=== PATIENT | female | born 1990 | race Two or more races ===

== ENCOUNTER 2021-03-22 15:28 | Emergency (ER) | payer BC ==
[~2021-03-22] VITALS: Ht 157.5 cm; Wt 88.0 kg
[2021-03-22] MEDS ORDERED: IBU800 MG PO (17:44)
== END 2021-03-22 17:48 | disposition home or self-care (01) ==
LOC: ER 15:28
DX: S52.591A Other fractures of lower end of right radius, initial encounter for closed fracture (principal); W01.198A Fall on same level from slipping, tripping and stumbling with subsequent striking against other object, initial encounter; Y93.01 Activity, walking, marching and hiking; Y92.488 Other paved roadways as the place of occurrence of the external cause; Y99.8 Other external cause status